=== PATIENT | male | born 1965 | race Caucasian/White ===

== ENCOUNTER → 2016-10-20 | Outpatient (CLI) | payer BC ==
[~2016-10-20] MED LIST: ADVIL200 M2 PO; IBUPROFEN800 MG PO; LORTAB 10-3251 EACH PO
--- NOTE | ~2016-10-20 | CT55 ---
[facility] A Service of [facility] & [facility] / [facility] RADIOLOGY TEXT RESULTS PATIENT: JESUS MANUEL QIU LOCATION: [facility] : 61 UNIT #: [id number] AGE: [address]: Olya Kumar MD SEX: M ORDER DR: [id number] [facility] [address] [place], [place] [address] [id number] O MR#: [id number] [facility] #: [id number] NAME: JESUS MANUEL QIU : 1965 SEX: M STUDY DATE/TIME: 10/20/2016 10:11 UNIT: [facility] ROOM: STUDY DESCRIPTION: CT Chest W Con Attending Physician: Olya Kumar M.D. Referring Physician: Olya Kumar M.D. Ordering Physician: Olya Kumar M.D. Primary Care Physician: No Primary Care Physician MEDICAL IMAGING REPORT This report is preliminary unless electronic signature is present EXAM CT chest with contrast, 10/20/2016, 1011 hours. CLINICAL HISTORY 51-year-old man with a history of neuroendocrine tumor for followup. Observation for suspected malignant neoplasm. History of carcinoid of the small bowel. COMPARISON CT abdomen and pelvis 05/07/2016 and OctreoScan exam 05/21/2016. TECHNIQUE Dynamic helical CT images were obtained from the lung apices through the adrenal glands. Sagittal and coronal reconstructions were performed. Contrast was Isovue-370 80 mL IV. Total exam DLP 1259 mGy-cm for the chest, abdomen, and pelvis exam. This CT exam was performed with one or more of the following radiation dose reduction techniques: automatic exposure control, adjustment of mA and/or kV according to patient size, and iterative reconstruction. FINDINGS Images through the thoracic inlet demonstrate no thyroid lesion or supraclavicular adenopathy. There is no pathologic adenopathy in the chest. The aorta, cardiac chambers, pulmonary arteries, and pericardium are normal. The lungs are well expanded. There is a calcified granuloma in the right lower lobe. There are no suspicious lung nodules. No effusions. Please see CT abdomen and pelvis report for findings below the diaphragms. STS. [facility] A Service of [facility] & [facility] / [facility] RADIOLOGY TEXT RESULTS PATIENT: JESUS MANUEL QIU LOCATION: [facility] : 61 UNIT #: [id number] AGE: [address]: Olya Kumar MD SEX: M ORDER DR: IMPRESSION Negative chest CT. There is no evidence of metastatic disease. Benign calcified granulomatous changes are present. Dictated by... Belle Jasso M.D. THIS IS AN ELECTRONICALLY VERIFIED REPORT Belle Jasso M.D. at 10/20/2016 2:29 PM BRENTON/viry TD: 10/20/2016 14:24 JOB #: [id number] MEDICAL IMAGING REPORT COPY
--- NOTE | ~2016-10-20 | CT2 ---
[facility] A Service of [facility] & [facility] RADIOLOGY TEXT RESULTS PATIENT: JESUS MANUEL QIU LOCATION: [facility] : 61 UNIT #: [id number] AGE: [address]: Olya Kumar MD SEX: M ORDER DR: [id number] [facility] [address] [place], [place] [address] [id number] O MR#: [id number] Acc #: [id number] NAME: JESUS MANUEL QIU : 1965 SEX: M STUDY DATE/TIME: 10/20/2016 UNIT: [facility] ROOM: STUDY DESCRIPTION: CT Abd and Pelv W Cont Attending Physician: Olya Kumar M.D. Referring Physician: Olya Kumar M.D. Ordering Physician: Olya Kumar M.D. Primary Care Physician: Primary Care Physician No MEDICAL IMAGING REPORT This report is preliminary unless electronic signature is present EXAM CT abdomen and pelvis with contrast 10/20/2016 10:11 hours HISTORY 51-year-old man with history of neuroendocrine tumor. History of carcinoid of the small bowel. Observation for suspected malignant neoplasm. Patient has no acute abdominal complaints today. COMPARISON CT abdomen and pelvis 05/07/2016 OctreoScan dated 05/21/2016. TECHNIQUE Dynamic helical CT images were obtained from the lung bases through the pubic symphysis with intravenous contrast only. Isovue-370 80 mL IV. Sagittal and coronal reconstructions were performed. Total exam DLP 1259 mGy-cm. The CT exam was performed with one or more of the following radiation dose reduction techniques: automatic exposure control, adjustment of mA and/or kV according to patient size, and iterative reconstruction. FINDINGS The lung base are clear and there are no effusions. The distal esophagus is normal. The liver again demonstrates diffuse low attenuation consistent with fatty infiltration. In the posterior right lobe just below the dome of the diaphragm there is a new low density area measuring 4.1 x 3.8 x 2.4 cm which is low in attenuation with question of a perceptible enhancing wall. This is concerning for metastasis. There is persistent focal low attenuation of medial segment left lobe of the liver along the falciform ligament likely fatty change. No other definite liver lesions are seen. The spleen, pancreas and bile ducts are normal. The gallbladder is STS. [facility] A Service of [facility] & [facility] RADIOLOGY TEXT RESULTS PATIENT: JESUS MANUEL QIU LOCATION: [facility] : 61 UNIT #: [id number] AGE: [address]: Olya Kumar MD SEX: M ORDER DR: surgically absent. The right adrenal gland is normal. There is no left adrenal lesion. The left kidney is surgically absent. There is a stable cyst in the posterior mid-right kidney measuring 2.2 cm and only 10 Hounsfield units consistent with a benign simple cyst. There is no retroperitoneal adenopathy or mesenteric adenopathy. There is no evidence of carcinomatosis. The stomach is contracted and unopacified but does appear normal. The small bowel is nondilated. There is a suture line in the right lower quadrant with no evidence of bowel wall thickening. CT pelvis demonstrates a normal appearance to the colon and rectum. There a few dystrophic calcifications in the prostate unchanged. No adenopathy. IMPRESSION 1. There is a background fatty change throughout the liver with a new low density area in the posterior dome of the liver, right lobe measuring 4.1 x 3.8 x 2.4 cm with a very thin enhancing wall. This is concerning for a new liver metastasis. 2. Focal fatty change persists in the medial segment left lobe of the liver abutting the falciform ligament. 3. No evidence of metastatic disease elsewhere in the abdomen or pelvis. 4. Left nephrectomy change. 5. Stable simple cyst right posterior mid kidney. Dictated by... Belle Jasso M.D. THIS IS AN ELECTRONICALLY VERIFIED REPORT Belle Jasso M.D. at 10/20/2016 2:17 PM BRENTON/ignacio TD: 10/20/2016 11:26 JOB #: [id number] MEDICAL IMAGING REPORT COPY
[2016-10-21 06:45] LABS: POC - CREATININE 1.35 mg/dL (0.64-1.27)
== END | disposition home or self-care (01) ==
LOC: CCAT 09:16
PROVIDERS: Internal Medicine Hematology
DX: Z08 Encounter for follow-up examination after completed treatment for malignant neoplasm (principal); N28.1 Cyst of kidney, acquired; Z90.5 Acquired absence of kidney; Z85.038 Personal history of other malignant neoplasm of large intestine; Z85.858 Personal history of malignant neoplasm of other endocrine glands
CPT/HCPCS: 71260; 74177; 82565; Q9967